=== PATIENT | female | born 1980 | race Caucasian/White ===

== ENCOUNTER 2016-05-26 12:38 | Emergency (ER) | payer MEDICAID ==
[2016-05-26 17:02] VITALS: BP 126/75
== END 2016-05-26 17:02 | disposition home or self-care (01) ==
LOC: ED 12:38
DX: K04.7 Periapical abscess without sinus (principal)

== ENCOUNTER 2017-01-01 12:54 | Emergency (ER) | payer MEDICAID ==
[2017-01-01 12:59] VITALS: BP 121/74
[2017-01-01 14:33] LABS: CALCIUM 9.6 mg/dL (8.5-10.1); CARBON DIOXIDE 31.4 mmol/L (21-32); CHLORIDE SERUM 103 mmol/L (98-107); CREATININE SERUM 0.7 mg/dL (0.6-1.0); GFR1 > 60 mL/min; GLUCOSE SERUM 94 mg/dL (74-106); POTASSIUM SERUM 4.2 mmol/L (3.5-5.1); SODIUM SERUM 140 mmol/L (136-145)
== END 2017-01-01 15:45 | disposition home or self-care (01) ==
LOC: ED 12:54
PROVIDERS: Emergency Medicine
DX: L97.519 Non-pressure chronic ulcer of other part of right foot with unspecified severity (principal); Z88.0 Allergy status to penicillin
CPT/HCPCS: 36415; 90715; Q0092

== ENCOUNTER 2018-03-17 09:41 | Emergency (ER) | payer MEDICAID ==
[~2018-03-17] VITALS: Ht 157.5 cm; Wt 89.8 kg
[2018-03-17 09:50] VITALS: BP 136/85; Ht 157.5 cm; Wt 89.8 kg
== END 2018-03-17 10:37 | disposition home or self-care (01) ==
LOC: ED 09:41
DX: J06.9 Acute upper respiratory infection, unspecified (principal); Z88.0 Allergy status to penicillin

== ENCOUNTER 2018-05-02 02:20 | Emergency (ER) | payer MEDICAID ==
[~2018-05-02] VITALS: Ht 157.5 cm; Wt 88.0 kg
[2018-05-02 02:25] VITALS: Ht 157.5 cm; Wt 88.0 kg
[2018-05-02 03:21] LABS: BASOPHIL % 0.3 % (0-2); PLATELET COUNT 226 x10^3mcL (130-400); RED CELL DISTRIBUTION WIDTH 14.3 % (11.5-14.5)
[2018-05-02 03:27] LABS: CALCIUM 9.1 mg/dL (8.5-10.1); CARBON DIOXIDE 27.8 mmol/L (21-32); CHLORIDE SERUM 99 mmol/L (98-107); CREATININE SERUM 0.8 mg/dL (0.6-1.0); GFR1 > 60 mL/min; GLUCOSE SERUM 103 mg/dL (74-106); POTASSIUM SERUM 3.3 mmol/L (3.5-5.1); SODIUM SERUM 135 mmol/L (136-145)
[2018-05-02 03:34] LABS: ALBUMIN 3.9 g/dL (3.4-5.0); ALKALINE PHOSPHATASE 65 U/L (46-116); ALT/SGPT 38 U/L (14-59); AST/SGOT 27 U/L (15-37); BILIRUBIN TOTAL 0.4 mg/dL (0.20-1.00)
[2018-05-02 03:43] LABS: TOTAL PROTEIN, SERUM 8.3 g/dL (6.4-8.2)
[2018-05-02 05:11] VITALS: BP 116/76
== END 2018-05-02 05:11 | disposition home or self-care (01) ==
LOC: ED 02:20
PROVIDERS: Emergency Medicine
DX: B34.9 Viral infection, unspecified (principal); Z88.0 Allergy status to penicillin
CPT/HCPCS: J1885; J7030

== ENCOUNTER 2019-02-17 15:17 | Emergency (ER) | payer MEDICAID ==
[~2019-02-17] VITALS: Ht 157.5 cm; Wt 88.0 kg
[2019-02-17 15:31] VITALS: Ht 157.5 cm; Wt 88.0 kg
[2019-02-17 17:48] LABS: BASOPHIL % 0.4 % (0-2); PLATELET COUNT 256 x10^3mcL (130-400)
[2019-02-17 17:50] LABS: RED CELL DISTRIBUTION WIDTH 14.8 % (11.5-14.5)
[2019-02-17 18:07] LABS: CALCIUM 8.3 mg/dL (8.5-10.1); CARBON DIOXIDE 28.4 mmol/L (21-32); CHLORIDE SERUM 100 mmol/L (98-107); CREATININE SERUM 0.8 mg/dL (0.6-1.0); GFR1 > 60 mL/min; GLUCOSE SERUM 96 mg/dL (74-106); POTASSIUM SERUM 3.6 mmol/L (3.5-5.1); SODIUM SERUM 136 mmol/L (136-145)
[2019-02-17 18:11] LABS: ALKALINE PHOSPHATASE 63 U/L (46-116); ALT/SGPT 26 U/L (14-59); AST/SGOT 22 U/L (15-37); BILIRUBIN TOTAL 0.5 mg/dL (0.20-1.00); LIPASE 141 IU/L (73-393); TOTAL PROTEIN, SERUM 7.2 g/dL (6.4-8.2)
[2019-02-17 18:12] LABS: ALBUMIN 3.1 g/dL (3.4-5.0)
[2019-02-17 19:30] VITALS: BP 107/66
== END 2019-02-17 19:30 | disposition home or self-care (01) ==
LOC: ED 15:17
PROVIDERS: Emergency Medicine
DX: R10.816 Epigastric abdominal tenderness (principal); R10.811 Right upper quadrant abdominal tenderness; R11.2 Nausea with vomiting, unspecified; R50.9 Fever, unspecified; K21.9 Gastro-esophageal reflux disease without esophagitis; Z90.89 Acquired absence of other organs; Z88.0 Allergy status to penicillin
CPT/HCPCS: J1885; J2405; Q0092

== ENCOUNTER 2019-02-18 21:31 | Emergency (ER) | payer MEDICAID ==
[~2019-02-18] VITALS: Ht 160 cm; Wt 84.8 kg
[2019-02-18 21:48] VITALS: Ht 160 cm; Wt 84.8 kg
[2019-02-19 00:08] VITALS: BP 106/71
== END 2019-02-19 00:08 | disposition home or self-care (01) ==
LOC: ED 21:31
DX: K52.9 Noninfective gastroenteritis and colitis, unspecified (principal); K21.9 Gastro-esophageal reflux disease without esophagitis; Z88.0 Allergy status to penicillin
CPT/HCPCS: J1885

== ENCOUNTER 2019-03-23 17:14 | Emergency (ER) | payer MEDICAID ==
[~2019-03-23] VITALS: Ht 160 cm; Wt 88.5 kg
[2019-03-23 19:03] VITALS: BP 145/89
== END 2019-03-23 19:03 | disposition home or self-care (01) ==
LOC: ED 17:14
DX: J02.0 Streptococcal pharyngitis (principal); K21.9 Gastro-esophageal reflux disease without esophagitis; H92.02 Otalgia, left ear; R51 Headache; Z88.0 Allergy status to penicillin
CPT/HCPCS: 87804; J7512

== ENCOUNTER 2019-05-30 20:46 | Emergency (ER) | payer MEDICAID ==
[~2019-05-30] VITALS: Ht 160 cm; Wt 85.7 kg
[2019-05-30 20:48] VITALS: Ht 160 cm; Wt 85.7 kg
[2019-05-30 21:53] VITALS: BP 118/77
== END 2019-05-30 21:53 | disposition home or self-care (01) ==
LOC: ED 20:46 → EDBD 20:46 → ED 21:53
DX: B34.9 Viral infection, unspecified (principal); R03.0 Elevated blood-pressure reading, without diagnosis of hypertension; K21.9 Gastro-esophageal reflux disease without esophagitis; Z88.0 Allergy status to penicillin
CPT/HCPCS: Q0092

== ENCOUNTER 2019-09-29 08:05 | Emergency (ER) | payer MEDICAID ==
[~2019-09-29] VITALS: Ht 157.5 cm; Wt 88.0 kg
[2019-09-29 08:11] VITALS: Ht 157.5 cm; Wt 88.0 kg
[2019-09-29 09:53] VITALS: BP 115/80
== END 2019-09-29 09:50 | disposition home or self-care (01) ==
LOC: ED 08:05
DX: S61.212A Laceration without foreign body of right middle finger without damage to nail, initial encounter (principal); W45.8XXA Other foreign body or object entering through skin, initial encounter; Y93.89 Activity, other specified; Y92.89 Other specified places as the place of occurrence of the external cause; Y99.8 Other external cause status; Z88.0 Allergy status to penicillin; K21.9 Gastro-esophageal reflux disease without esophagitis
CPT/HCPCS: A4570; J2001

== ENCOUNTER 2019-10-01 11:43 | Emergency (ER) | payer MEDICAID ==
[~2019-10-01] VITALS: Ht 152.4 cm; Wt 88.9 kg
[2019-10-01 12:07] VITALS: Ht 152.4 cm; Wt 88.9 kg
[2019-10-01 12:38] VITALS: BP 115/83
== END 2019-10-01 12:45 | disposition home or self-care (01) ==
LOC: ED 11:43
DX: S61.212D Laceration without foreign body of right middle finger without damage to nail, subsequent encounter (principal); K21.9 Gastro-esophageal reflux disease without esophagitis; Z88.0 Allergy status to penicillin; X58.XXXD Exposure to other specified factors, subsequent encounter

== ENCOUNTER 2019-10-11 10:09 | Emergency (ER) | payer MEDICAID ==
[~2019-10-11] VITALS: Ht 157.5 cm; Wt 89.8 kg
[2019-10-11 10:38] VITALS: BP 133/82; Ht 157.5 cm; Wt 89.8 kg
== END 2019-10-11 12:19 | disposition home or self-care (01) ==
LOC: ED 10:09
DX: S61.212D Laceration without foreign body of right middle finger without damage to nail, subsequent encounter (principal); K21.9 Gastro-esophageal reflux disease without esophagitis; Z88.0 Allergy status to penicillin; X58.XXXD Exposure to other specified factors, subsequent encounter